=== PATIENT | male | born 1960 | race Caucasian/White ===

== ENCOUNTER 2024-10-21 02:33 | Emergency (ER) | payer BC, MEDICARE ==
[~2024-10-21] VITALS: Ht 165.1 cm; Wt 78.9 kg
[~2024-10-21 02:33] MED LIST: AEC81 PO; CLOP75TA32 PO; LISI5TAB21 PO; METO25TA6 PO; RANI300T4 PO; RIVA15TA PO; RIVA20TA PO; SIMV-43 PO
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
[2024-10-21] MEDS: cefTRIAXone 1G VIAL IVPB ONE (03:35)
[2024-10-21] MEDS: DiphenhydrAMINE HCL 50 MG/ML VIAL IV ONE (03:35)
[2024-10-21 03:36] LABS: BASOPHILS # (AUTO) 0.05 K/uL (0.00-0.20); BASOPHILS % (AUTO) 0.5 % (0.0-5.0); EOSINOPHILS # (AUTO) 0.65 K/uL (0.00-0.70); EOSINOPHILS % (AUTO) 6.3 % (0.0-8.0); HEMATOCRIT 45.5 % (42-54); IMMATURE GRANULOCYTE ABSOLUTE 0.02 K/uL (0-1); LYMPHOCYTES # (AUTO) 3.4 K/uL (1.0-4.8); LYMPHOCYTES % (AUTO) 32.7 % (21.0-51.0); MEAN CORPUSCULAR HEMOGLOBIN 29.9 pg (27.0-33.0); MEAN CORPUSCULAR HGB CONC 35.2 g/dL (32.0-36.0); MONOCYTES # (AUTO) 0.9 K/uL (0.1-1.0); MONOCYTES % (AUTO) 8.4 % (3.0-13.0); NEUTROPHILS # (AUTO) 5.4 K/uL (1.8-7.7); NEUTROPHILS % (AUTO) 51.9 % (40.0-77.0); PLATELET COUNT (AUTO) 226 K/uL (130-400); RED BLOOD CELL COUNT(AUTO) 5.35 MIL/uL (4.50-6.20); RED CELL DISTRIBUTION WIDTH 13.6 % (11.0-15.5); WHITE BLOOD COUNT (AUTO) 10.4 K/uL (4.8-10.8)
[2024-10-21] MEDS: Solu-medROL 125MG VIAL ONE (03:36)
[2024-10-21] MEDS: Solu-medROL 125MG VIAL IVP ONE (03:36)
[2024-10-21] MEDS: cefTRIAXone 1G VIAL 1 GM ONE (03:36)
[2024-10-21] MEDS: DiphenhydrAMINE HCL 50 MG/ML VIAL ONE (03:36)
[2024-10-21 03:44] LABS: CREATININE 0.7 mg/dL (0.5-1.3); POTASSIUM 4.1 mmol/L (3.5-5.1)
[2024-10-21] MEDS ORDERED: DICL500C PO (03:57)
[2024-10-21 04:18] VITALS: BP 117/62; PULSE 87; RESP 20; TEMP 98.1; O2SAT 96
== END 2024-10-21 04:34 | disposition home or self-care (01) ==
LOC: EDH 02:33
DX: T22.111A Burn of first degree of right forearm, initial encounter (principal); L73.9 Follicular disorder, unspecified; E78.00 Pure hypercholesterolemia, unspecified; I10 Essential (primary) hypertension; Z79.01 Long term (current) use of anticoagulants; Z79.82 Long term (current) use of aspirin; Z79.899 Other long term (current) drug therapy; Z95.1 Presence of aortocoronary bypass graft; Z95.5 Presence of coronary angioplasty implant and graft; X11.8XXA Contact with other hot tap-water, initial encounter; Y93.89 Activity, other specified; Y92.89 Other specified places as the place of occurrence of the external cause; Y99.8 Other external cause status
CPT/HCPCS: 99284; 96374; 96375; 80048; 85025; 36415; 16000; J2919; J1200; J0696